=== PATIENT | female | born 1995 | race Caucasian/White ===

== ENCOUNTER 2018-02-09 13:52 | Emergency (ER) | payer SELFPAY ==
[~2018-02-09] VITALS: Ht 162.6 cm; Wt 55.0 kg
[2018-02-09 14:03] VITALS: BP 125/86
== END 2018-02-09 18:54 | disposition home or self-care (01) ==
LOC: ER 14:05
DX: R10.2 Pelvic and perineal pain (principal); R03.0 Elevated blood-pressure reading, without diagnosis of hypertension; W01.0XXA Fall on same level from slipping, tripping and stumbling without subsequent striking against object, initial encounter; Y93.89 Activity, other specified; Y92.89 Other specified places as the place of occurrence of the external cause; Y99.8 Other external cause status
CPT/HCPCS: 76856; 81025; 99284

== ENCOUNTER 2023-10-12 20:27 | Emergency (ER) | payer MEDICAID ==
[~2023-10-12] VITALS: Ht 152.4 cm; Wt 80.0 kg
[2023-10-12 21:15] VITALS: O2SAT 100
[2023-10-12] MEDS ORDERED: TUSSL MT (22:35)
[2023-10-12] MEDS ORDERED: BO1 TP (22:35)
[2023-10-12] MEDS ORDERED: CETI1TAB MT (22:35)
[2023-10-12] MEDS ORDERED: ALBU4TAB6 MT (22:35)
[2023-10-12 23:41] VITALS: BP 143/88; PULSE 88; RESP 12; TEMP 97.3
== END 2023-10-12 23:43 | disposition home or self-care (01) ==
LOC: ER 20:27
DX: J06.9 Acute upper respiratory infection, unspecified (principal); R05.9 Cough, unspecified; R09.81 Nasal congestion; Z20.822 Contact with and (suspected) exposure to COVID-19
CPT/HCPCS: 87804 ×2; 99283; 87426; Z7610